=== PATIENT | male | born 1990 | race Caucasian/White ===

== ENCOUNTER 2018-10-24 14:23 | Emergency (ER) | payer BC, OTHER ==
[2018-10-24] MEDS ORDERED: NORMAL SALINE 1000 ML 1,000 ML IV PRN (16:35)
[2018-10-24] MEDS ORDERED: KETOROLAC TROMETHAMINE INJ/PF 30 MG/1 ML SDV IV ONE (16:35)
[2018-10-24] MEDS ORDERED: PROCHLORPERAZINE EDISYLATE INJ 10 MG/2 ML VIAL IM ONE (16:35)
[2018-10-24] MEDS ORDERED: DIPHENHYDRAMINE HCL 50 MG/ML VIAL IV ONE (16:36)
--- NOTE | 2018-10-24 16:42 | ER Document Report ---
ED General - General Chief Complaint: Dizziness Stated Complaint: NAUSEA,VOMITING Time Seen by Provider: 10/24/18 16:25 Mode of Arrival: Ambulatory Information source: Patient, Parent TRAVEL OUTSIDE OF THE [place] 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 Patient was given 25 mg of Benadryl, 4 mg of Zofran, 250mg of NS via IV for his symptoms with some relief however his nausea and vertigo did return. Patient was seen at [facility] 6 months ago, per mother vertigo is likely induced by migraine, did prescribe him a triptan, patient did not complete this today, last episode was approximately 6 months ago. Reports s ome photophobia denies phonophobia. Denies fevers, chills, chest pain,palpitations, shortness of breath, dyspnea, diarrhea, abdominal pain, hematuria,blurred vision, double vision, loss of vision, speech changes, LH, dizziness, syncope, wheezing, ST, URI, neck pain, weakness, bowel or bladder dysfunction, saddle anesthesia, numbness or tingling in bilateral upper or lower extremities equally, muscle paralysis, weakness in bilateral upper or lower extremities equally or rash. - Related Data Allergies/Adverse Reactions: No Known Allergies Allergy (Unverified 10/24/18 16:25) Past Medical History - General Information source: Patient - Social History Smoking Status: Current Some Day Smoker Family History: Reviewed & Not Pertinent Patient has suicidal ideation: No Patient has homicidal ideation: No Neurological Medical History: Reports: Hx Migraine, Hx Seizures Renal/ Medical History: Denies: Hx Peritoneal Dialysis Review of Systems - Review of Systems Constitutional: No symptoms reported EENT: No symptoms reported Cardiovascular: No symptoms reported Respiratory: No symptoms reported Gastrointestinal: See HPI Genitourinary: No symptoms reported Male Genitourinary: No symptoms reported Musculoskeletal: No symptoms reported Skin: No symptoms reported Hematologic/Lymphatic: No symptoms reported Neurological/Psychological: See HPI Physical Exam - Vital signs Vitals: Temp Pulse Resp BP Pulse Ox 97.4 F 79 18 142/86 H 100 10/24/18 14:27 10/24/18 14:27 10/24/18 14:27 10/24/18 14:27 10/24/18 14:27 - Notes Notes: PHYSICAL EXAMINATION: GENERAL: Well-appearing, well-nourished and in mild distress. HEAD: Atraumatic, normocephalic. EYES: Pupils equal round and reactive to light, extraocular movements intact, sclera anicteric, conjunctiva are normal. PERRLA ENT: Nares patent, oropharynx clear without exudates. Moist mucous membranes. NECK: Normal range of motion, supple without lymphadenopathy LUNGS: Breath sounds clear to auscultation bilaterally and equal. No wheezes rales or rhonchi. HEART: Regular rate and rhythm without murmurs ABDOMEN: Soft, nontender, nondistended abdomen. No guarding, no rebound. No masses appreciated. No CVA tenderness Musculoskeletal: Normal range of motion, no pitting or edema. No cyanosis. NEUROLOGICAL: Cranial nerves grossly intact. Normal speech, normal gait. Normal sensory, motor exams. PSYCH: Normal mood, normal affect. SKIN: Warm, Dry, normal turgor, no rashes or lesions noted. Course - Re-evaluation Re-evalutation: 10/24/18 16:40 28-year-old male afebrile vitals stable mild distress due to nausea and vomiting presents for evaluation of vertigo-like symptoms. Patient states that the symptoms are exactly like his experiences with vertigo in the past, has been evaluated by [facility] which states these are likely migraine induced. Patient does take glutamine and another anticonvulsant for grand mal seizures, has not had one in the last year, patient denies any aura, no seizure-like activity. Vitals remained stable, patient was given 250 mL's of normal saline, 25 mg of Benadryl and 4 mg of Zofran via EMS which did give him some relief however he did start to feel nauseous with vomiting a few hours after getting these medications. Denies any abdominal pain. 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 cbc cmp 1 L normal saline given another 25 mg of Benadryl and 10 mg of Compazine given IVP - Vital Signs Vital signs: Temp Pulse Resp BP Pulse Ox 97.4 F 79 18 142/86 H 100 10/24/18 14:27 10/24/18 14:27 10/24/18 14:27 10/24/18 14:27 10/24/18 14:27 Discharge - Discharge Instructions: Dizziness ([facility]), Antinausea Medication ([facility]), Vertigo ([facility]), Intravenous (IV) Fluids ([facility]) Additional Instructions: Vertigo You have experienced an episode of vertigo -- a whirling dizziness which may be accompanied by nausea and vomiting or staggering. Vertigo is often caused by an irritation of the inner ear, in which case it is called labyrinthitis. It can also be a symptom of a degenerating inner ear, nerve damage, or brain injury. Your physician has evaluated you to determine whether any further testing is necessary. Vertigo is often treated with dramamine or meclizine. These medications are helpful, but stronger medication may be needed if you are vomiting. Rest in bed. You should not drive or operate machinery until completely better. It may take one to three weeks for recovery. If there are new symptoms, such as decreased hearing or vision, severe headache, weakness or faintness, or confusion, call the physician. Forms: Return to Work Referrals: KEYON ALEMAN MD [NO LOCAL MD] - Follow up in 3-5 days SCOTT CLIFFORD MD [ACTIVE STAFF] - Follow up tomorrow
[2018-10-24 16:54] LABS: ABSOLUTE BASOPHILS # (AUTO) 0.1 10^3/uL (0.0-0.2); ABSOLUTE LYMPHOCYTES (AUTO) 1.1 10^3/uL (0.5-4.7); ABSOLUTE MONOCYTES (AUTO) 0.7 10^3/uL (0.1-1.4); ABSOLUTE NEUT (AUTO) 14.5 10^3/uL (1.7-8.2); BASOPHILS % (AUTO) 0.4 % (0-2); EOSINOPHILS % (AUTO) 0.1 % (0-6); HEMATOCRIT 45.4 % (37.9-51.0); HEMOGLOBIN 16.2 g/dL (13.5-17.0); LYMPHOCYTES % (AUTO) 6.5 % (13-45); MEAN CORPUSCULAR HEMOGLOBIN 30.4 pg (27.0-33.4); MEAN CORPUSCULAR HGB CONC 35.7 g/dL (32.0-36.0); MEAN CORPUSCULAR VOLUME 85 fl (80-97); PLATELET COUNT 195 10^3/uL (150-450); RED BLOOD COUNT 5.34 10^6/uL (4.35-5.55); RED CELL DISTRIBUTION WIDTH 13.8 % (11.5-14.0); TOTAL CELLS COUNTED % (AUTO) 100 %; WHITE BLOOD COUNT 16.2 10^3/uL (4.0-10.5)
[2018-10-24 17:25] LABS: ALANINE AMINOTRANSFERASE 47 U/L (21-72); ALBUMIN 4.9 g/dL (3.5-5.0); ALKALINE PHOSPHATASE 88 U/L (38-126); ANION GAP 12 (5-19); ASPARTATE AMINO TRANSFERASE 23 U/L (17-59); BILIRUBIN,DIRECT 0.3 mg/dL (0.0-0.4); BILIRUBIN,TOTAL 0.8 mg/dL (0.2-1.3); BLOOD UREA NITROGEN 8 mg/dL (7-20); C-REACTIVE PROTEIN 10.1 mg/L (<10.0); CALCIUM 10.2 mg/dL (8.4-10.2); CARBON DIOXIDE 21 mmol/L (22-30); CHLORIDE 109 mmol/L (98-107); GLUCOSE 129 mg/dL (75-110); SODIUM 141.9 mmol/L (137-145); TOTAL PROTEIN 8.2 g/dL (6.3-8.2)
--- NOTE | 2018-10-24 18:48 | ER Document Report ---
ED Medical Screen (RME) - General Chief Complaint: Dizziness Stated Complaint: NAUSEA,VOMITING Time Seen by Provider: 10/24/18 16:25 Primary Care Provider: SCOTT CLIFFORD MD [ACTIVE STAFF] - Follow up tomorrow KEYON ALEMAN MD [NO LOCAL MD] - Follow up in 3-5 days Mode of Arrival: Ambulatory Information source: Patient, Relative TRAVEL OUTSIDE OF THE [place] 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 Patient was given 25 mg of Benadryl, 4 mg of Zofran, 250mg of NS via IV for his symptoms with some relief however his nausea and vertigo did return. Patient was seen at [facility] 6 months ago, per mother vertigo is likely induced by migraine, did prescribe him a triptan, but has never taken medication because he is never had another migraine episode, patient did not complete this today, last episode was approximately 6 months ago. Reports some photophobia denies phonophobia. Denies fevers, chills, chest pain,palpitations, shortness of breath, dyspnea, diarrhea, abdominal pain, hematuria,blurred vision, double vision, loss of vision, speech changes, LH, dizziness, syncope, wheezing, ST, URI, neck pain, weakness, bowel or bladder dysfunction, saddle anesthesia, numbness or tingling in bilateral upper or lower extremities equally, muscle paralysis, weakness in bilateral upper or lower extremities equally or rash. exam: PHYSICAL EXAMINATION: GENERAL: Well-appearing, well-nourished and in no moderate distress HEAD: Atraumatic, normocephalic. EYES: Pupils equal round and reactive to light, NECK: no lymphadenopathy. Able to move neck due to pain from headache. LUNGS: Breath sounds clear to auscultation bilaterally and equal. No wheezes rales or rhonchi. HEART: Regular rate and rhythm without murmurs ABDOMEN: Soft, nontender, normoactive bowel sounds. No guarding, no rebound. No masses appreciated. NEUROLOGICAL: No focal neurological deficits. PSYCH: Normal mood, normal affect. SKIN: Warm, Dry, normal turgor, no rashes or lesions noted. Migraine cocktail of 25 mg Benadryl, 10 mg Compazine, 1 L fluids given, patient CBC shows a leukocytosis of 16 with slight left shift. CMP unremarkable. Will obtain chest x-ray, patient since never been seen by this facility for this issue complaining of neck pain. I have greeted and performed a rapid initial assessment of this patient. A comprehensive ED assessment and evaluation of the patient, analysis of test results and completion of medical decision making process will be conducted by an additional ED providers. - Related Data Allergies/Adverse Reactions: No Known Allergies Allergy (Unverified 10/24/18 16:25) Past Medical History - General Information source: Patient - Social History Family history: Reviewed & Not Pertinent Neurological Medical History: Reports: Hx Migraine, Hx Seizures Renal/ Medical History: Denies: Hx Peritoneal Dialysis Review of Systems - Review of Systems Constitutional: See HPI EENT: No symptoms reported Cardiovascular: No symptoms reported Respiratory: No symptoms reported Gastrointestinal: No symptoms reported Genitourinary: No symptoms reported Male Genitourinary: No symptoms reported Musculoskeletal: No symptoms reported Skin: No symptoms reported Hematologic/Lymphatic: No symptoms reported Neurological/Psychological: See HPI Physical Exam - Vital signs Vitals: Temp Pulse Resp BP Pulse Ox 97.4 F 79 18 142/86 H 100 10/24/18 14:27 10/24/18 14:27 10/24/18 14:27 10/24/18 14:27 10/24/18 14:27 Course - Vital Signs Vital signs: Temp Pulse Resp BP Pulse Ox 97.4 F 79 18 142/86 H 100 10/24/18 14:27 10/24/18 14:27 10/24/18 14:27 10/24/18 14:27 10/24/18 14:27 - Laboratory Result Diagrams: 10/24/18 16:42 10/24/18 16:42 Laboratory results interpreted by me: 10/24/18 10/24/18 16:42 16:42 WBC 16.2 H Seg Neutrophils % 89.0 H Lymphocytes % 6.5 L Absolute Neutrophils 14.5 H Chloride 109 H Carbon Dioxide 21 L Glucose 129 H C-Reactive Protein 10.1 H Doctor's Discharge - Discharge Instructions: Antinausea Medication ([facility]), Dizziness ([facility]), Intravenous (IV) Fluids ([facility]), Vertigo ([facility]) Additional Instructions: Vertigo You have experienced an episode of vertigo -- a whirling dizziness which may be accompanied by nausea and vomiting or staggering. Vertigo is often caused by an irritation of the inner ear, in which case it is called labyrinthitis. It can also be a symptom of a degenerating inner ear, nerve damage, or brain injury. Your physician has evaluated you to determine whether any further testing is necessary. Vertigo is often treated with dramamine or meclizine. These medications are helpful, but stronger medication may be needed if you are vomiting. Rest in bed. You should not drive or operate machinery until completely better. It may take one to three weeks for recovery. If there are new symptoms, such as decreased hearing or vision, severe headache, weakness or faintness, or confusion, call the physician. Forms: Return to Work Referrals: SCOTT CLIFFORD MD [ACTIVE STAFF] - Follow up tomorrow KEYON ALEMAN MD [NO LOCAL MD] - Follow up in 3-5 days
--- NOTE | 2018-10-24 19:42 | RADIOLOGY REPORT (SQ) ---
EXAM DESCRIPTION: CHEST 2 VIEWS COMPLETED DATE/TIME: 10/24/2018 7:21 pm REASON FOR STUDY: cxr for elevated leuk COMPARISON: None. EXAM PARAMETERS: NUMBER OF VIEWS: two views TECHNIQUE: Digital Frontal and Lateral radiographic views of the chest acquired. RADIATION DOSE: NA LIMITATIONS: none FINDINGS: LUNGS AND PLEURA: No pneumothorax. Increased markings in the right lateral lung base, poss ible developing airspace process. No dense consolidation or pleural effusion.. MEDIASTINUM AND HILAR STRUCTURES: No masses or contour abnormalities. HEART AND VASCULAR STRUCTURES: Heart normal size. No evidence for failure. BONES: No acute findings. HARDWARE: None in the chest. OTHER: No other significant finding. LUNGS AND PLEURA: No pneumothorax. MEDIASTINUM AND HILAR STRUCTURES: Stable. IMPRESSION: Increased markings in the right lateral lung base, possible developing airspace process. No dense consolidation or pleural effusion. TECHNICAL DOCUMENTATION: JOB ID: [id number] [place]-[id number] 2010 [employer]- All Rights Reserved Reading location - IP/workstation name: [email or web address]
[2018-10-24] MEDS ORDERED: DIAZEPAM 5 MG TABLET PO ONE (20:47)
[2018-10-24] MEDS ORDERED: FAMOTIDINE 20 MG TABLET PO ONE (20:47)
--- NOTE | 2018-10-24 20:55 | ER Document Report ---
ED General - General Chief Complaint: Dizziness Stated Complaint: NAUSEA,VOMITING Time Seen by Provider: 10/24/18 16:25 Primary Care Provider: SCOTT CLIFFORD MD [ACTIVE STAFF] - Follow up tomorrow KEYON ALEMAN MD [NO LOCAL MD] - Follow up in 3-5 days Mode of Arrival: Ambulatory Notes: Patient is a 28 year old male that comes to the Emergency Department for chief complaint of vertigo spinning sensation that started several hours prior to arrival, vomiting multiple times, and some mild light sensitivity. He denies having a headache at any point however. He denies fever/chills, shortness of breath, cough, recent illness. He reports a history of vertigo and migraines, follows with [facility], was prescribed a triptan, but because he did not have a headache he did not take it today. He denies recreational drugs, alcohol. He was medicated with toradol, benadryl, compazine, and IV fluids. He states he has no vertigo or symptoms now while lying still, and even moves with limited symptoms. TRAVEL OUTSIDE OF THE [place] IN LAST 30 DAYS: No - Related Data Allergies/Adverse Reactions: No Known Allergies Allergy (Unverified 10/24/18 16:25) Past Medical History - General Information source: Patient - Social History Smoking Status: Current Some Day Smoker Frequency of alcohol use: None Drug Abuse: None Lives with: Family Family History: Reviewed & Not Pertinent Patient has suicidal ideation: No Patient has homicidal ideation: No Neurological Medical History: Reports: Hx Migraine, Hx Seizures Renal/ Medical History: Denies: Hx Peritoneal Dialysis - Immunizations Immunizations up to date: Yes Hx Diphtheria, Pertussis, Tetanus Vaccination: Yes Review of Systems - Review of Systems Constitutional: No symptoms reported EENT: No symptoms reported Cardiovascular: No symptoms reported Respiratory: No symptoms reported Gastrointestinal: See HPI Genitourinary: No symptoms reported Male Genitourinary: No symptoms reported Musculoskeletal: No symptoms reported Skin: No symptoms reported Hematologic/Lymphatic: No symptoms reported Neurological/Psychological: See HPI Physical Exam - Vital signs Vitals: Temp Pulse Resp BP Pulse Ox 97.4 F 79 18 142/86 H 100 10/24/18 14:27 10/24/18 14:27 10/24/18 14:27 10/24/18 14:27 10/24/18 14:27 - Notes Notes: GENERAL: Alert, interacts well. No acute distress. HEAD: Normocephalic, atraumatic. EYES: Pupils equal, round, and reactive to light. Extraocular movements intact. ENT: Oral mucosa moist, tongue midline. Oropharynx unremarkable. Airway patent. Nares patent, no nasal septal hematoma, TM's intact. NECK: Full range of motion. Supple. Trachea midline. LUNGS: Clear to auscultation bilaterally, no wheezes, rales, or rhonchi. No respiratory distress. HEART: Regular rate and rhythm. No murmur ABDOMEN: Soft, non-tender. Non-distended. Bowel sounds present in all 4 quadrants. GENITOURINARY: Deferred EXTREMITIES: Moves all 4 extremities spontaneously. No edema, normal radial and dorsalis pedis pulses bilaterally. No cyanosis. BACK: no cervical, thoracic, lumbar midline tenderness. No saddle anesthesia, normal distal neurovascular exam. NEUROLOGICAL: Alert and oriented x3. Normal speech. Cranial nerves II through XII grossly intact. PSYCH: Normal affect, normal mood. SKIN: Warm, dry, normal turgor. No rashes or lesions noted. Course - Re-evaluation Re-evalutation: On my evaluation patient has no complaints. He tells me that he never had a headache. He tells me that he had bad vertigo and this caused him to vomit. He has had this before. He follows with neurology because of this. He also follows with neurology because of migraines. CBC shows leukocyte ptosis, bicarb is low, however this is consistent with patient's vomiting. He has a soft benign abdomen, he is tolerating p.o. without any difficulty now. His vital signs are unremarkable. I did review chest x-ray performed on the patient although I am uncertain why he had chest x-ray, this was done in triage. He denies cough, shortness of breath, fever/chills, or chest pain. Chest x-ray shows patchy area in the right lateral field which could be pneumonia however based on patient's clinical evaluation, lack of hypoxia, lack of any symptoms suggesting this I have a low suspicion of this. I suspect the leukocytosis was from dehydration. He has been given IV fluids. I did discuss this finding with patient but patient and family agree that this does not appear to be pneumonia and he will not be treated with antibiotics. Instead patient will be treated with meclizine, Zofran, he will follow-up with his neurologist. He is asking to leave when I first evaluated him because he states he feels much better. Discussed return precautions. Patient and family state understanding and agreement. - Vital Signs Vital signs: Temp Pulse Resp BP Pulse Ox 97.4 F 75 16 141/96 H 100 10/24/18 14:27 10/24/18 20:54 10/24/18 20:54 10/24/18 20:54 10/24/18 20:54 - Laboratory Result Diagrams: 10/24/18 16:42 10/24/18 16:42 Laboratory results interpreted by me: 10/24/18 10/24/18 16:42 16:42 WBC 16.2 H Seg Neutrophils % 89.0 H Lymphocytes % 6.5 L Absolute Neutrophils 14.5 H Chloride 109 H Carbon Dioxide 21 L Glucose 129 H C-Reactive Protein 10.1 H Discharge - Discharge Clinical Impression: Vertigo, Dehydration Vomiting Qualifiers: Vomiting type: unspecified Vomiting Intractability: non-intractable Nausea presence: with nausea Qualified Code(s): R11.2 - Nausea with vomiting, unspecified Condition: Stable Disposition: HOME, SELF-CARE Additional Instructions: Your evaluation is most consistent with vestibular neuritis causing vertigo. Your symptoms should resolve with time. Take the Antivert as prescribed, the Zofran if needed for nausea, and follow closely with Neurology. Return if you worsen - headache, fever, confusion, loss of vision or hearing, or any other concerning symptoms. Prescriptions: Meclizine HCl [Antivert 25 mg Tablet] 25 mg PO TID PRN 7 Days #21 tablet PRN Reason: Ondansetron [Zofran Odt 4 mg Tablet] 1 - 2 tab PO Q4H PRN #20 tab.rapdis PRN Reason: For Nausea/Vomiting Forms: Return to Work Referrals: SCOTT CLIFFORD MD [ACTIVE STAFF] - Follow up tomorrow KEYON ALEMAN MD [NO LOCAL MD] - Follow up in 3-5 days
[2018-10-24 20:58] VITALS: BP 141/96
== END 2018-10-24 21:01 | disposition home or self-care (01) ==
LOC: ER 14:23
DX: R42 Dizziness and giddiness (principal); R11.2 Nausea with vomiting, unspecified; E86.0 Dehydration; F17.200 Nicotine dependence, unspecified, uncomplicated
CPT/HCPCS: 99284; 96372; 96361; 96374; 96375; 36415; 85025; 86140; 80053; 71046; J1200; J1885; J0780; J7030